=== PATIENT | female | born 1950 | race Caucasian/White ===

== ENCOUNTER → 2020-10-12 12:55 | Outpatient (CLI) | payer MEDICARE, MEDICAID, SELFPAY ==
--- NOTE | ~2020-10-12 | CT_ITS ---
EXAMINATION:CT lung screening DATE: 10/12/2020 13:13 INDICATION: Personal history of tobacco dependence. Current smoker with 30 pack year history. TECHNIQUE: Computed tomography (CT) of the chest was performed without intravenous contrast. Automate d exposure control and iterative reconstruction technique were employed. The dose-length product (DLP ) was 146.18 mGy-cm. COMPARISON: CT abdomen and pelvis 03/28/2019 FINDINGS: There are a few nodules in the lungs measuring up to 4 mm in right middle lobe. No pleural effusion. The heart size is normal. No pericardial effusion. There is diffuse hepatic steatosis. Ther e is dextroscoliosis and severe spondylosis of thoracic spine. IMPRESSION: 1. Lung-RADS category 2: Benign appearance or behavior. Continue annual screening with noncontrast lo w-dose chest CT in 12 months. Reviewed, dictated and finalized at location A. IMPRESSION: 1. Lung-RADS category 2: Benign appearance or behavior. Continue annual screeni ng with noncontrast low-dose chest CT in 12 months.
== END ==
PROVIDERS: PCP Family Medicine; Visit Provider Physician Assistant
DX: Z12.2 Encounter for screening for malignant neoplasm of respiratory organs (principal); Z87.891 Personal history of nicotine dependence
CPT/HCPCS: 71271

== ENCOUNTER → 2020-11-17 13:40 | Outpatient (CLI) | payer MEDICARE, MEDICAID, SELFPAY ==
--- NOTE | ~2020-11-17 | MM_ITS ---
EXAMINATION: MM screening crys BI w fritz HISTORY: Screening TECHNIQUE: Craniocaudal and mediolateral oblique 3-D tomosynthesis images were obtained and synthetic 2-D images were generated. CAD analysis was submitted and interpreted. COMPARISON: No prior mammogram is available for comparison at this institution. BREAST PARENCHYMAL COMPOSITION: There are scattered areas of fibroglandular density. FINDINGS: There is no evidence of suspicious mass, calcification, or architectural distortion to sugg est malignancy in either breast. There has been no suspicious interval change. IMPRESSION: 1. No mammographic evidence of malignancy. 2. Recommend routine screening mammography in one year. BI-RADS Category 1: Negative Reviewed, dictated and finalized at location A.
== END ==
PROVIDERS: PCP Family Medicine; Visit Provider Family Medicine
DX: Z12.31 Encounter for screening mammogram for malignant neoplasm of breast (principal)
CPT/HCPCS: 77063; 77067

== ENCOUNTER 2021-02-28 01:27 | Day surgery (SDC) | payer MEDICARE, MEDICAID, SELFPAY ==
[2021-02-19 14:43] VITALS: BMI 29.2
[2021-02-28] VITALS (7 sets, daily range): BP systolic 77–115; BP diastolic 44–69; PULSE 72–83; RESP 17–23; TEMP 36.1; O2SAT 93–97; BMI 29.5
[2021-02-28 09:09] LABS: Glucose Point of Care 200 mg/dl (65-105)
[2021-02-28] MEDS: LACTATED RINGERS 1,000 ML 150 ML IV CONT (09:10)
--- NOTE | 2021-02-28 09:14 | SUR.PREOP ---
pt was stating she felt as if she were going to pass out in the waiting room. pt reported feeling dizzy and having a migraine. pt was brought back to pre-op via WC. accu check and VS obtained. Pt assisted to stretcher and assisted with changing as pt was weak. IV access obtain and pt given IV fluid bolus. anesthesia aware. will continue to monitor.
--- NOTE | 2021-02-28 09:28 | WPDGICN ---
Assessment and Plan Assessment and plan (1) History of colon polyps: Code(s): Z86.010 - Personal history of colonic polyps Status: Acute Assessment and Plan: Patient has a history of colon polyps identified at colonoscopy 2013. Plan is for surveillance colonoscopy at this time. High-fiber diet is advised. Further recommendations will be given after endoscopy. GI Consult Note Consult date/time: 02/28/21 09:28 HPI: Michela Ayers is a 70 year old female presents for screening colonoscopy. Patient has a history of colon polyps removed from the colon in 2013. By Dr. Carrillo. Patient states that her stools tend to be loose after eating. She attributes this to previous cholecystectomy. She denies any blood in her stools. Denies abdominal pain. Family history is noncontributory. Neoplasia screening colonoscopy suggested today. Review of Systems Review of Systems: All systems reviewed & are unremarkable except as noted in HPI and below PMFSH Family History Family History Father Diabetes mellitus Cerebrovascular accident Mother Hypertension Family history of cardiovascular disease Family history of malignant neoplasm of breast in first degree relative Sibling Hypertension Family history of cardiovascular disease Other Family history of arthritis No family history of cardiovascular disease No family history of hypertension No family history of malignant neoplasm Social History Social History Smoking packs per day: 1 Smoking cigarettes per day: 20.0 Years smoked: 50 Smoking pack-years: 50.00 Smoking status: Current every day smoker Tobacco type: cigarettes Alcohol intake: never Substance use: never Substance use type: does not use Living arrangements: alone Gender identity (if verbalized by the patient): Female Sexual Orientation (if Verbalized by the Patient): Straight or Heterosexual Spiritual care concerns: No Meds Home Medications and Allergies Home Medications Medication Instructions Recorded Confirmed Type hydrochlorothiazide 25 mg tablet See Rx Instructions .ROUTE 08/11/20 02/19/21 Rx .COMPLEX #90 tablet lisinopril 40 mg tablet See Rx Instructions .ROUTE 09/11/20 02/19/21 Rx .COMPLEX #90 tablet levothyroxine 137 mcg tablet See Rx Instructions .ROUTE 10/30/20 02/19/21 Rx .COMPLEX #90 tablet metformin 500 mg tablet See Rx Instructions .ROUTE 11/01/20 02/19/21 Rx .COMPLEX #180 tablet triamcinolone acetonide 0.1 % See Rx Instructions .ROUTE 11/02/20 02/19/21 Rx topical cream .COMPLEX #80 g atorvastatin 40 mg tablet See Rx Instructions .ROUTE 01/08/21 02/19/21 Rx .COMPLEX #90 tablet zolpidem 10 mg tablet 10 mg PO .qhs PRN #30 tablet 02/07/21 02/19/21 Rx Allergies Allergy/AdvReac Type Severity Reaction Status Date / Time No Known Allergies Allergy Verified 02/28/21 09:11 Vital Signs Vital Signs - 24 hr 02/28/21 09:12 Temperature 96.9 F L Pulse Rate 83 Respiratory Rate 20 Blood Pressure 77/44 L Pulse Oximetry 95 Exam Narrative: Physical exam reveals patient be alert. Vital signs stable. HEENT HEENT exam is unremarkable. Patient is anicteric. Lungs are clear to auscultation and percussion. Heart is without murmur or extra sounds. Abdominal exam bowel sounds are present soft nontender with no organomegaly. Digital external rectal exam is normal.
--- NOTE | 2021-02-28 09:41 | WPDANESEPPF ---
Anes - Initial Pre Proc Eval Procedure: Operation Date: 02/28/21 10:15 Proposed Procedures p Screening Colonoscopy - Ahsan Covington MD Date/Time: 02/28/21 09:41 Surgeon: Ahsan Covington MD Pre Op Diagnosis: neoplasm screening Patient Data Age: 70 Gender: F Height: 1.63 m Weight: 78.1 kg Last Vital Signs Temp 36.1 C L 02/28/21 09:12 Pulse 78 02/28/21 09:30 Resp 18 02/28/21 09:30 BP 93/65 L 02/28/21 09:30 Pulse Ox 97 02/28/21 09:30 Allergies Allergy/AdvReac Type Severity Reaction Status Date / Time No Known Allergies Allergy Verified 02/28/21 09:11 Home Medications Medication Instructions Recorded Confirmed Type hydrochlorothiazide 25 mg tablet See Rx Instructions .ROUTE 08/11/20 02/19/21 Rx .COMPLEX #90 tablet lisinopril 40 mg tablet See Rx Instructions .ROUTE 09/11/20 02/19/21 Rx .COMPLEX #90 tablet levothyroxine 137 mcg tablet See Rx Instructions .ROUTE 10/30/20 02/19/21 Rx .COMPLEX #90 tablet metformin 500 mg tablet See Rx Instructions .ROUTE 11/01/20 02/19/21 Rx .COMPLEX #180 tablet triamcinolone acetonide 0.1 % See Rx Instructions .ROUTE 11/02/20 02/19/21 Rx topical cream .COMPLEX #80 g atorvastatin 40 mg tablet See Rx Instructions .ROUTE 01/08/21 02/19/21 Rx .COMPLEX #90 tablet zolpidem 10 mg tablet 10 mg PO .qhs PRN #30 tablet 02/07/21 02/19/21 Rx Laboratory Tests 02/28/21 09:00 POC Capillary Glucose 200 mg/dl H mg/dl (65-105) Patient hx anesthesia problems: none Family hx anesthesia problems: none PMFSH Family History Family History Father Diabetes mellitus Cerebrovascular accident Mother Hypertension Family history of cardiovascular disease Family history of malignant neoplasm of breast in first degree relative Sibling Hypertension Family history of cardiovascular disease Other Family history of arthritis No family history of cardiovascular disease No family history of hypertension No family history of malignant neoplasm Social History Social History Smoking packs per day: 1 Smoking cigarettes per day: 20.0 Years smoked: 50 Smoking pack-years: 50.00 Smoking status: Current every day smoker Tobacco type: cigarettes Alcohol intake: never Substance use: never Substance use type: does not use Living arrangements: alone Gender identity (if verbalized by the patient): Female Sexual Orientation (if Verbalized by the Patient): Straight or Heterosexual Spiritual care concerns: No Anes - Eval Final PreProcedure Day of Procedure 02/28/21 09:41 Patient weight: obese Heart: regular rate and rhythm Lungs: clear to auscultation Airway: Mallampati scale class II Neurological: alert and oriented Last oral intake: >/= 8 hours ASA classification: III Emergent: no Anesthetic plan: proceed Anesthesia type and monitoring: general GIVS and standard monitoring Informed Consent: The patient's anesthetic plan and its attendant risks and benefits were discussed with the patient/family/POA. Questions were solicited and answers provided to the satisfaction of the patient/family/POA.
== END 2021-02-28 11:06 | disposition home or self-care (01) ==
PROVIDERS: PCP Family Medicine; Visit Provider Internal Medicine Gastroenterology
PROC: 0DJD8ZZ Inspection of Lower Intestinal Tract, Via Natural or Artificial Opening Endoscopic (ICD-10-PCS; CPT 45378; principal; 2021-02-28 10:15)
DX: Z12.11 Encounter for screening for malignant neoplasm of colon (principal); K57.30 Diverticulosis of large intestine without perforation or abscess without bleeding; K64.8 Other hemorrhoids; D12.2 Benign neoplasm of ascending colon; D12.3 Benign neoplasm of transverse colon; Z79.84 Long term (current) use of oral hypoglycemic drugs; E03.9 Hypothyroidism, unspecified; F17.210 Nicotine dependence, cigarettes, uncomplicated; E66.9 Obesity, unspecified; Z68.29 Body mass index [BMI] 29.0-29.9, adult
CPT/HCPCS: 45385; 82948; 88305; J2704; J7120

== ENCOUNTER → 2022-01-15 15:21 | Outpatient (CLI) | payer MEDICARE, MEDICAID, SELFPAY ==
--- NOTE | ~2022-01-15 | MM_ITS ---
EXAMINATION: MM screening crys BI w fritz HISTORY: Screening TECHNIQUE: Craniocaudal and mediolateral oblique 3-D tomosynthesis images were obtained and synthetic 2-D images were generated. CAD analysis was submitted and interpreted. COMPARISON: Comparison to multiple prior studies sequentially, with oldest reviewed study dated 04/01. BREAST PARENCHYMAL COMPOSITION: There are scattered areas of fibroglandular density. FINDINGS: There is no evidence of suspicious mass, calcification, or architectural distortion to sugg est malignancy in either breast. There has been no suspicious interval change. IMPRESSION: 1. No mammographic evidence of malignancy. 2. Recommend routine screening mammography in one year. BI-RADS Category 1: Negative Reviewed, dictated and finalized at location A.
--- NOTE | ~2022-01-15 | DEXA_ITS ---
Bone Density Report Name: ADDY ANNA Age: 71 Sex: Female Ethnicity: White Date of : 1950 Indication: postmenopausal; screening for osteoporosis; height loss; Referring Provider: Mac Mart Study: Bone densitometry was performed. Exam Date: January 15, 2022 Accession number: [id number] Bone Density: Region BMD T-score Z-score Classification AP Spine (L1, L3, L4) 1.170 1.1 3.2 Normal Femoral Neck (Left) 0.655 -1.7 0.0 Osteopenia Total Hip (Left) 0.801 -1.2 0.3 Osteopenia Femoral Neck (Right) 0.657 -1.7 0.0 Osteopenia Total Hip (Right) 0.832 -0.9 0.6 Normal Total Hip Mean 0.817 -1.1 0.5 Osteopenia World Health Organization criteria for BMD impression classify patients as: Normal (T-score at or above -1.0), Osteopenia (T-score between -1.0 and -2.5), or Osteoporosis (T-score at or below -2.5). 10-year Fracture Risk(1): Major Osteoporotic Fracture 11% Hip Fracture 2.7% Reported Risk Factors: [place] (), Neck BMD=0.657, BMI=29.7, smoking (1) FRAX(R) Version 3.08. Fracture probability calculated for an untreated patient. Fracture probability may be lower if the patient has received treatment. Clinical Information Provided by Patient: Smokes Has used the following medications: Vitamin D, LEVOTHYROXINE Patient maximum height was 64.0 Menopause Age: 54 No regular weight bearing exercise Does not regularly consume dairy products Drinks caffeinated beverages Onset of menses at age 16 Number of children 2 Impression: The patient has low bone mass, based on the Left Femoral Neck T-score. The patient has an estimated ten-year risk of hip fracture of 2.7% and an estimated ten-year risk of major fracture of 11%, based on the WHO FRAX algorithm. The patient has risk factors, including: smoking. Discussion: BONE DENSITY IS LOW AT ONE OR MORE SKELETAL SITES. This patient's lowest T-score is low at one or more skeletal sites. It meets the World Health Organization's (WHO) criteria for ?low bone mass? (T-score between -1.0 and -2.5). The patient's 10-year risk of fracture as calculated by FRAX is less than the threshold where pharmacological therapy is recommended by the National Osteoporosis Foundation (NOF). However, all treatment decisions require clinical judgment and consideration of individual patient factors, including patient preferences, comorbidities, previous drug use, risk factors not captured in the FRAX model (e.g., frailty, falls, vitamin D deficiency, increased bone turnover, interval significant decline in bone density) and possible under or overestimation of fracture risk by FRAX. The patient should follow a healthful lifestyle (good nutrition with adequate calcium and vitamin D, and appropriate weight-bearing exercise). Follow-Up: Consider repeating this study in 2 t
--- NOTE | ~2022-01-15 | CT_ITS ---
EXAMINATION: CT lung screening DATE: 01/15/2022 15:42 INDICATION: Personal history of nicotine dependence, current smoker with 50 pack year history TECHNIQUE: Computed tomography (CT) of the chest was performed without intravenous contrast. The dose -length product (DLP) was 127.28 mGy-cm. Automated exposure control and iterative reconstruction tech Next[employer] were employed. COMPARISON: 10/12/2020 FINDINGS: There is mild emphysema. Again seen are a few scattered pulmonary nodules, the largest of w hich measures 4 mm in the right middle lobe. No new pulmonary nodule is identified. The lungs are pavithra e of acute opacities. No pleural effusion or pneumothorax. No pathologically enlarged thoracic lymph nodes are identified. The heart size is normal. The gallbladder is surgically absent. There is a part ially imaged cyst of the right kidney upper pole. IMPRESSION: 1. Lung-RADS category 2: Benign appearance or behavior. Continue annual screening with noncontrast lo w-dose chest CT in 12 months. Reviewed, dictated and finalized at location B. IMPRESSION: 1. Lung-RADS category 2: Benign appearance or behavior. Continue annual screeni ng with noncontrast low-dose chest CT in 12 months.
== END ==
PROVIDERS: PCP Family Medicine; Visit Provider Physician Assistant
DX: Z12.31 Encounter for screening mammogram for malignant neoplasm of breast (principal); Z78.0 Asymptomatic menopausal state; Z87.891 Personal history of nicotine dependence; Z12.2 Encounter for screening for malignant neoplasm of respiratory organs; M85.852 Other specified disorders of bone density and structure, left thigh; M85.851 Other specified disorders of bone density and structure, right thigh
CPT/HCPCS: 71271; 77063; 77067; 77080

== ENCOUNTER 2023-08-28 12:51 | Emergency (ER) | payer MEDICARE, MEDICAID, SELFPAY ==
[2023-08-28 13:30] VITALS: BP 92/68; PULSE 100; RESP 20; TEMP 36.6; O2SAT 96
--- NOTE | 2023-08-28 13:38 | PC.NURSE ---
patient left without being seen
== END 2023-08-28 14:59 | disposition left against medical advice (07) ==
LOC: ANHED 14:05
PROVIDERS: PCP Family Medicine
DX: R11.2 Nausea with vomiting, unspecified (principal)
CPT/HCPCS: 99199

== ENCOUNTER 2023-10-08 14:26 | Emergency (ER) | payer MEDICARE, MEDICAID, SELFPAY ==
[2023-10-08] VITALS (9 sets, daily range): BP systolic 79–109; BP diastolic 50–74; PULSE 78–97; RESP 16–18; TEMP 36.5; O2SAT 98–100
[2023-10-08 14:55] LABS: Basophils Absolute Auto 0.1 K/mm3 (0.0-0.1); Basophils Percent Auto 0.6 % (0.2-1.2); Eosinophils Absolute Auto 0.3 K/mm3 (0-0.3); Eosinophils Percent Auto 3.1 % (0-4.4); Hematocrit 47.9 % (37.0-47.0); Hemoglobin 15.3 g/dL (12.0-15.0); Immature Granulocyte Absolute 0.02 K/mm3 (0.00-0.031); Immature Granulocyte Percent A 0.2 % (0-0.5); Lymphocytes Absolute Auto 3.18 K/mm3 (0.9-3.2); Lymphocytes Percent Auto 36.2 % (18.3-44.2); Mean Corpuscular HGB Conc 31.9 g/dl (32-36); Mean Corpuscular Hemoglobin 29.2 pg (26-34); Mean Corpuscular Volume 91.4 fl (80-100); Mean Platelet Volume 10.1 fl (7.4-10.4); Monocytes Absolute Auto 0.6 K/mm3 (0.1-0.6); Monocytes Percent Auto 6.4 % (2.6-8.5); Neutrophils Absolute Auto 4.7 K/mm3 (1.3-6.7); Neutrophils Percent Auto 53.5 % (45.5-73.1); Platelet Count Result 413 k/mm3 (150-375); Red Blood Count 5.24 M/mm3 (4.2-5.4); Red Cell Distribution Width 14.8 % (11.5-14.5); White Blood Count 8.8 K/mm3 (4.5-10.0)
[2023-10-08] MEDS: SODIUM CHLORIDE 0.9% IV 1,000 ML 999 ML IV CONT ×2 (15:01→17:02)
[2023-10-08] MEDS: ONDANSETRON INJ 4 MG/2 ML VIAL IV PUSH (15:01)
--- NOTE | 2023-10-08 15:07 | ED.NAVMDI ---
HPI - Nausea/Vomiting/Diarrhea General Chief complaint: Nausea/Vomiting/Diarrhea Stated complaint: N/V, hypotensive Time Seen by Provider: 10/08/23 14:52 History of Present Illness HPI Narrative: Pt presents with nausea and vomiting for two days. Pt has had some diarrhea. Pt feels lightheaded like she is going to pass out. Pt denies abdominal pain. Pt says she is only vomiting bile now. Pt says she has some baseline kidney disease and also only has one kidney. Pt started ozempic for weight loss the day before symptoms started, but she has taken it before without these symptoms. Related Data Allergies Allergy/AdvReac Type Severity Reaction Status Date / Time No Known Allergies Allergy Verified 10/08/23 16:05 Review of Systems Review of Systems: All systems reviewed & are unremarkable except as noted in HPI and below PMFSH Past Medical History Medical History Achilles tendinitis of right lower extremity Acute bronchitis due to other specified organisms Bronchitis Diaphragmatic hernia without mention of obstruction or gangrene Essential (primary) hypertension Gastro-esophageal reflux disease without esophagitis Heartburn Lumbar radiculopathy Obstructive sleep apnea (adult) (pediatric) Prediabetes Ureteral calculus, right Family History Family History Father Diabetes mellitus Cerebrovascular accident Mother Hypertension Family history of cardiovascular disease Family history of malignant neoplasm of breast in first degree relative Sibling Hypertension Family history of cardiovascular disease Other Family history of arthritis No family history of cardiovascular disease No family history of hypertension No family history of malignant neoplasm Social History Social History Smoking packs per day: 1 Smoking cigarettes per day: 20.0 Years smoked: 50 Smoking pack-years: 50.00 Smoking status: Current every day smoker Tobacco type: cigarettes Alcohol intake: never Substance use: never Substance use type: does not use Do You Feel Safe in your Home?: Yes Lack of Transportation: No Lack of Food: Never True Current Housing: I Have Housing Concerned About Future Housing: No Difficulty Paying Gas/Electric Bills: No Difficulty Paying for Meds: No Currently Unemployed: No Education: High School Diploma/GED Difficulty w/ Childcare or Family Care: No Living arrangements: alone Gender identity (if verbalized by the patient): Female Sexual Orientation (if Verbalized by the Patient): Straight or Heterosexual Spiritual care concerns: No Exam Const: General: healthy appearing and no acute distress Nutritional Appearance: well nourished Orientation/consciousness: patient oriented x3 Limitations: no limitations Resp: Effort & Inspection: normal respiratory effort Auscultation: clear to auscultation bilaterally Cardio: Rate: regular rate Rhythm: regular rhythm GI: GI Palp: Yes Soft to palpation and No Tenderness to palpation present (GI) Auscultation: normal bowel sounds Skin: General skin exam: normal color Rashes: no rashes Wounds: no wounds Neuro: General: patient oriented x3, moves all extremities, no focal motor deficits and CN's II-XI intact bilaterally Speech: normal speech Extrem: General: normal to inspection and no clubbing, cyanosis or edema Psych: Mental Status: mental status grossly normal Affect: normal affect Attitude: cooperative Course Vital Signs Vital signs: Vital Signs Temperature 97.7 F 10/08/23 14:27 Pulse Rate 96 10/08/23 14:27 Respiratory Rate 16 10/08/23 14:27 Blood Pressure 96/67 L 10/08/23 14:27 Pulse Oximetry 98 10/08/23 14:27 Temperature 97.7 F 10/08/23 14:27 Pulse Rate 78 10/08/23 18:06 Respiratory Rate 18 10/08/23 18:
[2023-10-08 15:20] LABS: Bacteria Urine None Seen /hpf; Hyaline Casts Urine Present /lpf; RBC Urine 0-2 /hpf (0-2); Squamous Epithelial Cell Urine Moderate /hpf (Few)
[2023-10-08 15:30] LABS: Alanine Aminotransferase 22 U/L (6-35); Albumin Level 4.3 g/dL (3.5-5.1); Alkaline Phosphatase 76 U/L (38-126); Anion Gap 8 mmol/L (4-12); Aspartate Amino Transferase 25 U/L (14-36); Bilirubin,Total 0.7 mg/dL (0.2-1.3); Blood Urea Nitrogen 32 mg/dL (7-17); Calcium 9.7 mg/dL (8.4-10.2); Carbon Dioxide 29 mmol/L (22-30); Chloride 102 mmol/L (98-107); Estimated CRCL calculation 33 ml/min; Estimated Glomerular Filt Rate 44; Glucose 121 mg/dL (65-110); Lipase 41 U/L (23-300); Potassium 3.9 mmol/L (3.4-5.0); Sodium 139 mmol/L (137-145)
[2023-10-08 15:41] LABS: Appearance Urine Clear (Clear); Color Urine Yellow (Yellow); pH Urine 5.5 (5.0-9.0)
[2023-10-08 15:42] LABS: Bilirubin Urine 1+ (Negative); Blood Urine Negative (Negative); Glucose Urine UA Negative (Negative); Ketones Urine Trace mg/dL (Negative); Nitrate Urine Negative (Negative); Protein Urine Trace mg/dL (Negative); Specific Grav Ur >= 1.030 (1.001-1.035)
[2023-10-08 15:43] LABS: Leukocyte Esterase Ur Negative LEU/UL (Negative); Urobilinogen Urine 0.2 mg/dL (<2.0)
[2023-10-08 15:44] LABS: Add Urine Microscopic? YES
== END 2023-10-08 18:20 | disposition home or self-care (01) ==
PROVIDERS: Emergency Medicine; Emergency Provider Emergency Medicine; PCP Family Medicine
DX: K52.9 Noninfective gastroenteritis and colitis, unspecified (principal); E86.0 Dehydration; I10 Essential (primary) hypertension; K21.9 Gastro-esophageal reflux disease without esophagitis; G47.33 Obstructive sleep apnea (adult) (pediatric); R73.03 Prediabetes; N28.9 Disorder of kidney and ureter, unspecified; F17.210 Nicotine dependence, cigarettes, uncomplicated; R12 Heartburn; Z90.5 Acquired absence of kidney; Z87.442 Personal history of urinary calculi; Z79.85 Long-term (current) use of injectable non-insulin antidiabetic drugs; Z79.84 Long term (current) use of oral hypoglycemic drugs
CPT/HCPCS: 36415; 80053; 81001; 83690; 85025; 87086; 87088; 96361; 96374; 99284; J2405; J7030

== ENCOUNTER 2024-04-20 00:25 | Day surgery (SDC) | payer MEDICARE, MEDICAID, SELFPAY ==
[2024-03-30 13:32] VITALS: BMI 25.0
[2024-04-20 07:51] VITALS: BP 87/65; PULSE 89; RESP 20; TEMP 36.4; O2SAT 95
[2024-04-20] MEDS: LACTATED RINGERS 1,000 ML 150 ML IV CONT (08:00)
--- NOTE | 2024-04-20 08:26 | WPDANESEPPF ---
Anes - Initial Pre Proc Eval Procedure: Operation Date: 04/20/24 09:00 Proposed Procedures p Colonoscopy - Elliot Ramirez MD Date/Time: 04/20/24 08:26 Surgeon: Elliot Ramirez MD Pre Op Diagnosis: personal hx of colon polyps Patient Data Age: 74 Gender: F Height: 1.63 m Weight: 66.9 kg Last Vital Signs Temp 97.6 F 04/20/24 07:51 Pulse 89 04/20/24 07:51 Resp 20 04/20/24 07:51 BP 87/65 L 04/20/24 07:51 Pulse Ox 95 04/20/24 07:51 O2 Del Method Room Air 04/20/24 07:51 Allergies Allergy/AdvReac Type Severity Reaction Status Date / Time No Known Allergies Allergy Verified 04/20/24 07:49 Home Medications Medication Instructions Recorded Confirmed Type metformin 1,000 mg tablet 1,000 mg PO BID #180 tabs 08/27/23 04/20/24 Rx levothyroxine 125 mcg tablet 125 mcg PO DAILY #30 tabs 12/10/23 04/20/24 Rx zolpidem 10 mg tablet 10 mg PO QHS #30 tabs 12/22/23 04/20/24 Rx atorvastatin 40 mg tablet 40 mg PO DAILY #90 tabs 02/17/24 04/20/24 Rx Prilosec 1 tablet PO DAILY 03/30/24 04/20/24 History triamcinolone acetonide 0.1 % See Rx Instructions .Route 03/30/24 04/20/24 History topical cream .COMPLEX PRN Rash hydrochlorothiazide 25 mg tablet 25 mg PO QAM #30 tabs 04/15/24 04/20/24 Rx lisinopril 40 mg tablet 40 mg PO DAILY #30 tabs 04/15/24 04/20/24 Rx Patient hx anesthesia problems: none Family hx anesthesia problems: none Results Review: All pre-operative results and documents have been reviewed as part of the pre-operative evaluation. [facility] Past Medical History Medical History Achilles tendinitis of right lower extremity Acute bronchitis due to other specified organisms Bronchitis Diaphragmatic hernia without mention of obstruction or gangrene Essential (primary) hypertension Gastro-esophageal reflux disease without esophagitis Heartburn Lumbar radiculopathy Obstructive sleep apnea (adult) (pediatric) Prediabetes Ureteral calculus, right Family History Family History Father Diabetes mellitus Cerebrovascular accident Mother Hypertension Family history of cardiovascular disease Family history of malignant neoplasm of breast in first degree relative Sibling Hypertension Family history of cardiovascular disease Other Family history of arthritis No family history of cardiovascular disease No family history of hypertension No family history of malignant neoplasm Social History Social History Smoking packs per day: 1.5 Smoking cigarettes per day: 30.0 Years smoked: 50 Smoking pack-years: 75.00 Smoking status: Current every day smoker Tobacco type: cigarettes Alcohol intake: never Substance use: never Substance use type: does not use Do You Feel Safe in your Home?: Yes Lack of Transportation: No Lack of Food: Never True Current Housing: I Have Housing Concerned About Future Housing: No Difficulty Paying Gas/Electric Bills: No Difficulty Paying for Meds: No Currently Unemployed: No Education: High School Diploma/GED Difficulty w/ Childcare or Family Care: No Living arrangements: alone Gender identity (if verbalized by the patient): Female Sexual Orientation (if Verbalized by the Patient): Straight or Heterosexual Spiritual care concerns: No Anes - Eval Final PreProcedure Day of Procedure 04/20/24 08:26 Patient weight: normal Heart: regular rate and rhythm Lungs: clear to auscultation Airway: Mallampati scale class II Neurological: alert and oriented Last oral intake: >/= 8 hours ASA classification: III Emergent: no Anesthetic plan: proceed Anesthesia type and monitoring: general GIVS and standard monitoring Results Review: All pre-operative results and documents have been reviewed as part of the pre-operative evaluation. Inform
[2024-04-20 08:29] LABS: Glucose Point of Care 136 mg/dl (65-105)
--- NOTE | 2024-04-20 08:42 | PM.IMHP ---
H&P: HPI History of Present Illness Date/Time: 04/20/24 08:42 Chief Complaint: History of colon polyps. Narrative: The patient's last colonoscopy was about 3 years ago, and she had polyps. Here for surveillance colonoscopy. Review of Systems Review of Systems: All systems reviewed & are unremarkable except as noted in HPI and below PMFSH Past Medical History Medical History Achilles tendinitis of right lower extremity Acute bronchitis due to other specified organisms Bronchitis Diaphragmatic hernia without mention of obstruction or gangrene Essential (primary) hypertension Gastro-esophageal reflux disease without esophagitis Heartburn Lumbar radiculopathy Obstructive sleep apnea (adult) (pediatric) Prediabetes Ureteral calculus, right Family History Family History Father Diabetes mellitus Cerebrovascular accident Mother Hypertension Family history of cardiovascular disease Family history of malignant neoplasm of breast in first degree relative Sibling Hypertension Family history of cardiovascular disease Other Family history of arthritis No family history of cardiovascular disease No family history of hypertension No family history of malignant neoplasm Social History Social History Smoking packs per day: 1.5 Smoking cigarettes per day: 30.0 Years smoked: 50 Smoking pack-years: 75.00 Smoking status: Current every day smoker Tobacco type: cigarettes Alcohol intake: never Substance use: never Substance use type: does not use Do You Feel Safe in your Home?: Yes Lack of Transportation: No Lack of Food: Never True Current Housing: I Have Housing Concerned About Future Housing: No Difficulty Paying Gas/Electric Bills: No Difficulty Paying for Meds: No Currently Unemployed: No Education: High School Diploma/GED Difficulty w/ Childcare or Family Care: No Living arrangements: alone Gender identity (if verbalized by the patient): Female Sexual Orientation (if Verbalized by the Patient): Straight or Heterosexual Spiritual care concerns: No Meds Home Medications and Allergies Home Medications Medication Instructions Recorded Confirmed Type metformin 1,000 mg tablet 1,000 mg PO BID #180 tabs 08/27/23 04/20/24 Rx levothyroxine 125 mcg tablet 125 mcg PO DAILY #30 tabs 12/10/23 04/20/24 Rx zolpidem 10 mg tablet 10 mg PO QHS #30 tabs 12/22/23 04/20/24 Rx atorvastatin 40 mg tablet 40 mg PO DAILY #90 tabs 02/17/24 04/20/24 Rx Prilosec 1 tablet PO DAILY 03/30/24 04/20/24 History triamcinolone acetonide 0.1 % See Rx Instructions .Route 03/30/24 04/20/24 History topical cream .COMPLEX PRN Rash hydrochlorothiazide 25 mg tablet 25 mg PO QAM #30 tabs 04/15/24 04/20/24 Rx lisinopril 40 mg tablet 40 mg PO DAILY #30 tabs 04/15/24 04/20/24 Rx Allergies Allergy/AdvReac Type Severity Reaction Status Date / Time No Known Allergies Allergy Verified 04/20/24 07:49 Vital Signs Vital Signs - 24 hr 04/20/24 07:51 Temperature 97.6 F Pulse Rate 89 Respiratory Rate 20 Blood Pressure 87/65 L Pulse Oximetry 95 Oxygen Delivery Room Air Assessment and Plan Assessment and plan (1) Screening for malignant neoplasm of colon: Code(s): Z12.11 - Encounter for screening for malignant neoplasm of colon Status: Acute Plan Patient deemed a good candidate for colonoscopy. Will proceed.
[2024-04-20 09:25] VITALS: BP 77/43; PULSE 80; RESP 20; O2SAT 96
[2024-04-20 09:35] VITALS: BP 100/52; PULSE 79; RESP 22; O2SAT 100
[2024-04-20 09:45] VITALS: BP 98/48; PULSE 74; RESP 19; O2SAT 98
== END 2024-04-20 10:22 | disposition home or self-care (01) ==
PROVIDERS: PCP Family Medicine; Referring Provider Internal Medicine Gastroenterology; Visit Provider Internal Medicine Gastroenterology
PROC: 0DJD8ZZ Inspection of Lower Intestinal Tract, Via Natural or Artificial Opening Endoscopic (ICD-10-PCS; CPT 45378; principal; 2024-04-20 09:00)
DX: Z12.11 Encounter for screening for malignant neoplasm of colon (principal); D12.0 Benign neoplasm of cecum; D12.2 Benign neoplasm of ascending colon; D12.5 Benign neoplasm of sigmoid colon; K57.30 Diverticulosis of large intestine without perforation or abscess without bleeding; I10 Essential (primary) hypertension; K21.9 Gastro-esophageal reflux disease without esophagitis; G47.33 Obstructive sleep apnea (adult) (pediatric); R73.03 Prediabetes; F17.210 Nicotine dependence, cigarettes, uncomplicated; Z79.84 Long term (current) use of oral hypoglycemic drugs; Z80.3 Family history of malignant neoplasm of breast; Z82.49 Family history of ischemic heart disease and other diseases of the circulatory system
CPT/HCPCS: 45385; 45380; 82948; 88305; J2003; J2704; J7120

== ENCOUNTER 2025-04-22 09:05 | Emergency (ER) | payer MEDICARE, SELFPAY ==
--- NOTE | ~2025-04-22 | XR_ITS ---
Examination: XR knee RT 3V Clinical History: pain X 1WEEK Comparison: None Technique: 4 views right knee Findings/impression: 1. Small suprapatellar joint effusion. 2. Joint body. 3. No fracture or dislocation. 4. No significant degenerative changes. Reviewed, dictated and finalized at location R.
[2025-04-22 09:10] VITALS: BP 137/86; PULSE 97; RESP 16; TEMP 36.6; O2SAT 96
--- OUTSIDE RECORDS SUMMARY | 2025-04-22 09:23 | XMS_ITS | Clinical Summary ---
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 Gender Identity Not on file Sexual Orientation Not on file Plan of Treatment Health Maintenance Due Date Last Done Comments Hepatitis C Virus (HCV) Screening 1950 TdaP Immunization 1950 Cologuard 1997 Colonoscopy 1997 Colorectal Cancer Screening 1997 Immunochemical Fecal Occult Blood 1997 Zoster Immunization (3 of 3) 05/10/2020 03/15/2020, 04/02/2016 Influenza Immunization (#1) 2025 11/3 , 03/15/2020, 04/21/2019, Additional history exists SARS-COV-2 Immunization (2024- season) 2025 09/26/2020, 09/05/2020 Respiratory Syncytial Virus (RSV) Immunization (Adult) (1 - 1-dose 75+ series) 2027 Pneumococcal Immunization (50+ years) Completed 08/18/2020, 04/21/2019, 04/02/2016 Hepatitis B Immunization Aged Out No longer eligible based on patient's age to complete this topic Human Papillomavirus (HPV) Immunization Aged Out No longer eligible based on patient's age to complete this topic Meningococcal Immunization (ACWY) Aged Out No longer eligible based on patient's age to complete this topic Rotavirus Immunization Aged Out No lo nger eligible based on patient's age to complete this topic
--- OUTSIDE RECORDS SUMMARY | 2025-04-22 09:23 | XMS_ITS | Clinical Summary ---
Author Organization [facility] Address [address] [place] [id number] Phone Care Team Providers Care Product Marketing Executive Name Role Phone Luis Alberto Gray MD Primary Care Provider [phone] Allergies No known active allergies Medications levothyroxine (SYNTHROID, LEVOTHROID) 137 MCG tablet Take 137 mcg by mouth 1 (one) time each day 3 12/05/2018 Active metFORMIN (GLUCOPHAGE) 500 MG tablet 1 (one) time each day 3 12/20/2018 Active atorvastatin (LIPITOR) 40 MG tablet Take 40 mg by mouth 1 (one) time each day Active omeprazole OTC (PriLOSEC OTC) 20 MG EC tablet Take 20 mg by mouth 1 (one) time each day Active HYDROcodone-acet aminophen (NORCO) 5-325 MG per tablet Take 1 tablet by mouth every 6 (six) hours if needed for pain 0 03/26/2019 Active lisinopril (PRINIVIL,ZESTRI L) 40 MG tablet Take 40 mg by mouth 1 (one) time each day 3 03/04/2019 Active hydroCHLOROthiaz vane (HYDRODIURIL) 25 MG tablet Take 25 mg by mouth 1 (one) time each day 05/18/2019 Active zolpidem (AMBIEN) 10 MG tablet Take 10 mg by mouth at night if needed for sleep 07/26/2020 Active lisinopril (PRINIVIL) 40 MG tablet TAKE 1 TABLET BY MOUTH EVERY DAY 12/28/2020 Active potassium citrate (UROCIT-K) 10 MEQ (1080 MG) CR tablet TAKE 1 TABLET BY MOUTH 3 TIMES A DAY WITH MEALS 270 tablet 3 06/14/2021 Active Active Problems Problem Noted Date Diagnosed Date Diabetes mellitus 09/03/2021 Hypercholesterolemia 09/03/2021 Hypertensive disorder 09/03/2021 Osteoarthritis of knee 09/03/2021 Calculus of kidney 12/23/2014 Gross hematuria 07/22/2014 Atrophy of kidney Immunizations Immunization Administration Dates Next Due Influenza Recombinant Cata valent Injectable Preservative Free 04/13/2019 Pneumococcal Polysaccharide 04/21/2019 Sars-cov-2, Unspecified 10/01/2020 Family History Medical History Relation Comments Nephrolithiasis Father Nephrolithiasis Sister Relation Status Comments Father Sister Social History Tobacco Use Types Packs/Day Years Used Date Smoking Tobacco: Every Day Smokeless Tobacco: Never Tobacco Cessation:Ready to Q uit: No; Counseling Given: Yes Alcohol Use Standard Drinks/Week Comments Never 0 (1 standard drink = 0.6 oz pur e alcohol) AUDIT-C Answer Date Recorded Frequency of Alcohol Consumption Never 02/22/2019 Average Number of Drinks Not on file Frequency of Binge Drinking Not on file 02/11 Comments Unknown Sex and Gender Information Value Date Recorded Sex Assigned at Not on file Legal Sex Female 12:04 PM MDT Gender Identity Not on file Sexual Orientation Not on file Last Filed Vital Signs Vital Sign Reading Time Taken Comments Blood Pressure 136/74 03/04/2022 1:14 PM CDT Pulse - - Temperature 36.4 C (97.6 F) 03/04/2022 1:14 PM CDT Respiratory Rate 18 03/04/2022 1:14 PM CDT Oxygen Saturation - - Inhaled Oxygen Concentration - - Weight 76.2 kg (168 lb) 03/04/2022 1:14 PM CDT Height 160 cm (5' 3) 03/04/2022 1:14 PM CDT Body Mass Index 29.76 03/04/2022 1:14 PM CDT Plan of Treatment Health Maintenance Due Date Last Done Comments Pneumococcal PPSV23/PCV13 65 + Years / Low and Medium Risk (2 of 3 - PCV) 04/21/2020 04/21/2019 Influenza Vaccine (#1) 2025 04/13/2019 Insurance MEDICARE MEDICAID - [place] Care Teams Product Marketing Executive Relationship Specialty Start Date End Date Luis Alberto Gray MD [address] [place] [address] PCP - General Internal Medicine 02/01/19
--- OUTSIDE RECORDS SUMMARY | 2025-04-22 09:47 | XMS_ITS | Clinical Summary ---
Author Organization [facility] Address [address] [place] [id number] Phone Care Team Providers Care Sous Chef Name Role Phone Luis Alberto Gray MD Primary Care Provider [phone] Allergies No known active allergies Medications levothyroxine [...] (#1) 2025 04/13/2019 Insurance [place] [address] Care Teams Sous Chef Relationship Specialty Start Date End Date Luis Alberto Gray MD [address] [place] [id number] PCP - General Internal Medicine 02/01/19
--- OUTSIDE RECORDS SUMMARY | 2025-04-22 09:47 | XMS_ITS | Clinical Summary ---
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
--- NOTE | 2025-04-22 10:01 | ED_ITS ---
HPI - General Adult General Chief complaint: Extremity Injury, Lower Stated complaint: knee injury last Friday Time Seen by Provider: 04/22/25 09:14 History of Present Illness HPI narrative: 75-year-old female presents to the emergency department for evaluation for worsening right knee pain. Patient does have an extensive history of left knee pain and was told that she would ultimately need a knee replacement. Patient states over the last few days she has had worsening right knee pain which he states is her good knee. Patient reports pain when doing steps. Patient denies any falls or injuries. Related Data Home Medications ?Medication ?Instructions ?Recorded ?Confirmed ?Last Taken ?Type Prilosec 1 tablet PO DAILY 03/30/24 0 02/21/25 04/20/24 History triamcinolone acetonide 0.1 % See Rx Instructions .Rou te 03/30/24 02/21/25 04/19/24 History topical cream .COMPLEX PRN Rash Allergies Allergy/AdvReac Type Severity Reaction Status Date / Time No Known Allergies Allergy Verified 02/21/25 08:15 Review of Systems Review of Systems: All systems reviewed & are unremarkable except as noted in HPI and below PMFSH Past Medical History Medical History Diaphragmatic hernia without mention of obstruction or gangrene Acute bronchitis due to other specified organisms Ureteral calculus, right Prediabetes Obstructive sleep apnea (adult) (pediatric) Lumbar radiculopathy Heartburn Gastro-esophageal reflux disease without esophagitis Essential (primary) hypertension Bronchitis Achilles tendinitis of right lower extremity Family History Family History Father Diabetes mellitus Cerebrovascular accident Mother Hypertension Family history of cardiovascular disease Family history of malignant neoplasm of breast in first degree relative Sibling Hypertension Family history of cardiovascular disease Other Family history of arthritis No family history of cardiovascular disease No family history of hypertension No family history of malignant neoplasm Social History Social History Smoking packs per day: 1.5 Smoking cigarettes per day: 30.0 Years smoked: 50 Smoking pack-years: 75.00 Smoking status: Current every day smoker Tobacco type: cigarettes Alcohol intake: never Substance use: never Substance use type: does not use Do You Feel Safe in your Home?: Yes Lack of Transportation: No Lack of Food: Never True Current Housing: I Have Housing Concerned About Future Housing: No Difficulty Paying Gas/Electric Bills: YES Difficulty Paying for Meds: No Currently Unemployed: No Education: High School Diploma/GED Difficulty w/ Childcare or Family Care: No Living arrangements: alone Gender identity (if verbalized by the patient): Female Sexual Orientation (if Verbalized by the Patient): Straight or Heterosexual Spiritual care concerns: No Course Vital Signs Vital signs: Vital Signs Temperature 98 F 04/22/25 09:10 Pulse Rate 97 04/22/25 09:10 Respiratory Rate 16 04/22/25 09:10 Blood Pressure 137/86 04/22/25 09:10 Pulse Oximetry 96 04/22/25 09:10 Oxygen Delivery Room Air 04/22/25 09:10 Temperature 98 F 04/22/25 09:10 Pulse Rate 85 04/22/25 11:11 Respiratory Rate 14 04/22/25 11:11 Blood Pressure 145/72 H 04/22/25 11:11 Pulse Oximetry 95 04/22/25 11:11 Oxygen Delivery Room Air 04/22/25 09:10 Medical Decision Making MDM Narrative Medical decision making narrative: 75-year-old female presents emergency department for evaluation for worsening right knee pain over the last week. Patient denies any specific incident of falls or injury. X-ray does show evidence of effusion and degenerative changes. I do suspect patient has worsening arthritis of the right knee versus an acute soft tissue injury. Patient was advised to utilize is a knee brace and a walker for limited weight-bearing and to have close follow-up with Orthopedics. All questions concerns were addressed. Patient family were comfortable with plan with discharge and close follow-up. Differential Diagnosis Differential Diagnosis: Internal derangement of the right knee, arthritis, degenerative changes, fracture Vital Signs Vital Signs: Vital Signs Temperature 98 F 04/22/25 09:10 Pulse Rate 97 04/22/25 09:10 Respiratory Rate 16 04/22/25 09:10 Blood Pressure 137/86 04/22/25 09:10 Pulse Oximetry 96 04/22/25 09:10 Oxygen Delivery Room Air 04/22/25 09:10 Temperature 98 F 04/22/25 09:10 Pulse Rate 85 04/22/25 11:11 Respiratory Rate 14 04/22/25 11:11 Blood Pressure 145/72 H 04/22/25 11:11 Pulse Oximetry 95 04/22/25 11:11 Oxygen Delivery Room Air 04/22/25 09:10 Imaging Data My impression: Knee x-ray: No acute fracture or dislocation Discharge Plan Discharge Clinical Impression: Internal derangement of knee Patient Disposition: Home Condition: Stable Instructions: Antibiotic Form Additional Instructions: Noe wrap for comfort and increased knee stability. Naproxen to help with the knee effusion. Utilize a walker to help with gait and to limit weight-bearing on the affected knee. Have close follow-up with Orthopedics. Patient Language: Amharic Prescriptions: New (DME) walker Misc See Rx Instructions .Route Qty: 1 0RF Rx Instructions: As directed naproxen 500 mg tablet 500 mg PO BID 5 Days Qty: 10 0RF No Action potassium citrate [Urocit-K 10] 10 mEq (1,080 mg) tablet extended release 10 meq PO TID Qty: 270 3RF triamcinolone acetonide 0.1 % cream See Rx Instructions .ROUTE .COMPLEX PRN (Reason: Rash) Rx Instructions: APPLY TO AFFECTED AREA TWICE A DAY Prilosec 1 tablet PO DAILY lisinopril 40 mg tablet 40 mg PO DAILY Qty: 90 1RF atorvastatin 40 mg tablet See Rx Instructions .ROUTE .COMPLEX Qty: 90 1RF Dose Instruction: 40 MG ORALLY DAILY Rx Instructions: 40 MG ORALLY DAILY hydrochlorothiazide 25 mg tablet See Rx Instructions .ROUTE .COMPLEX Qty: 90 1RF Dose Instruction: TAKE 1 TABLET BY MOUTH EVERY MORNING Rx Instructions: TAKE 1 TABLET BY MOUTH EVERY MORNING metformin 1,000 mg tablet 1,000 mg PO BID Qty: 180 1RF zolpidem 10 mg tablet 10 mg PO QHS Qty: 30 5RF levothyroxine 125 mcg tablet 125 mcg PO DAILY Qty: 90 1RF Ozempic 1 mg/dose (4 mg/3 mL) pen injector 1 mg subcut WEEKLY Qty: 3 2RF Follow-up/Referrals: Deepak Garcia MD [Physician, Orthopedics] Tiki Freeman DO [Primary Care Provider, Family Practice]
[2025-04-22 11:11] VITALS: BP 145/72; PULSE 85; RESP 14; O2SAT 95
== END 2025-04-22 11:13 | disposition home or self-care (01) ==
PROVIDERS: Emergency Provider Emergency Medicine; PCP Family Medicine
DX: M23.91 Unspecified internal derangement of right knee (principal); I10 Essential (primary) hypertension; R73.03 Prediabetes; G47.33 Obstructive sleep apnea (adult) (pediatric); K21.9 Gastro-esophageal reflux disease without esophagitis; F17.210 Nicotine dependence, cigarettes, uncomplicated; Z87.442 Personal history of urinary calculi
CPT/HCPCS: 73562; 99283